=== PATIENT | female | born 1935 | race Caucasian/White ===

== ENCOUNTER 2022-01-05 09:44 | Emergency (ER) | payer MEDICARE ==
[~2022-01-05 09:44] MED LIST: BENTYL10 MG PO; CIPRO500 MG PO; METRONIDAZOLE500 MG PO
[2022-01-05 11:14] LABS: BASOPHIL 0.5 % (0-2); EOSINOPHIL 0.1 % (0-7); HCT 48.6 % (37.0-47.0); HGB 15.2 g/dl (12.5-16.0); MCH 25.2 pg (25.0-31.0); MCHC 31.3 g/dL (32.0-36.0); MCV 80.7 fL (78.0-100.0); MONOCYTE 9.4 % (0-12); MPV 12.4 fL (6.0-9.5); NEUTROPHIL 73.6 % (41-80); NRBC 0; PLT 133 K/uL (150-400); RBC 6.02 M/uL (4.20-5.40); RDW 15.3 % (11.5-14.0); WBC 7.3 K/uL (4.0-10.5)
[2022-01-05 11:30] LABS: ALBUMIN 3.9 g/dL (3.4-5.0); BILIRUBIN - TOTAL 0.7 mg/dL (0.2-1.0); BUN/CREAT RATIO (CALC) 19.6 RATIO; CREATININE 0.97 mg/dL (0.51-0.95); GLOBULIN (CALCULATION) 3.7 g/dL; POTASSIUM 4.1 mmol/L (3.5-5.1); TOTAL PROTEIN 7.6 g/dL (6.4-8.2)
[2022-01-05 11:48] LABS: BILIRUBIN 2+ mg/dL (NEGATIVE); BLOOD 2+ Ery/uL (NEGATIVE); CLARITY HAZY (CLEAR); GLUCOSE (U) NORMAL (NORMAL); LEUKOCYTES NEGATIVE Leu/uL (NEGATIVE); NITRITE POSITIVE (NEGATIVE); PROTEIN 2+ mg/dL (NEGATIVE); SPECIFIC GRAVITY >=1.030 (1.001-1.030); pH 5.5 (5.0-9.0)
[2022-01-05 12:07] LABS: COLOR AMBER (YELLOW)
[2022-01-05 12:12] LABS: AMORPHOUS URATES CRYSTALS MODERATE; BACTERIA TRACE; CALCIUM OXALATE CRYSTALS LARGE
[2022-01-05 12:13] LABS: TRANSITIONAL EPITHELIAL CELLS RARE
[2022-01-05] MEDS ORDERED: AMOX TR-K CLV1 EAC4 PO (13:16)
== END 2022-01-05 13:24 | disposition home or self-care (01) ==
LOC: FER 09:44
PROVIDERS: Internal Medicine
DX: N39.0 Urinary tract infection, site not specified (principal); U07.1 COVID-19; K59.00 Constipation, unspecified; K57.90 Diverticulosis of intestine, part unspecified, without perforation or abscess without bleeding; I10 Essential (primary) hypertension; Z88.5 Allergy status to narcotic agent
CPT/HCPCS: 36415; 80053; 81001; 83605; 84145; 85025; 87088; J2405; J7120